=== PATIENT | male | born 1995 | race African-American/Black ===

== ENCOUNTER 2021-12-09 21:02 | Emergency (ER) | payer BC, SELFPAY ==
[2021-12-10] MEDS ORDERED: Dexamethasone 10 MG/ML VIAL ONE (00:49)
[2021-12-10] MEDS ORDERED: predniSONE 20 MG TAB ONE ×2 (00:49→00:52)
[2021-12-10] MEDS ORDERED: diphenhydrAMINE 12.5 MG/5 ML UDCUP ONE (00:49)
[2021-12-10] MEDS ORDERED: Famotidine/PF 20 mg/2ml Vial ONE (00:49)
[2021-12-10] MEDS ORDERED: EPINEPHrine 1 MG/ML VIAL ONE (00:49)
[2021-12-10] MEDS ORDERED: diphenhydrAMINE 50 MG/ML VIAL ONE (00:52)
== END 2021-12-10 02:34 | disposition home or self-care (01) ==
LOC: ERS 21:02
DX: T78.2XXA Anaphylactic shock, unspecified, initial encounter (principal)
CPT/HCPCS: 96372; 96374; 96375; J0171; J1100; J1200; J7512; Q0163; S0028